=== PATIENT | female | born 1945 | race Caucasian/White ===

== ENCOUNTER → 2020-10-04 | Outpatient (CLI) | payer MEDICARE, BC | END | disposition home or self-care (01) | LOC: LAB SHORT 14:36 → LAB 14:36 | DX: D22.5 Melanocytic nevi of trunk (principal) | CPT/HCPCS: 88305 ==

== ENCOUNTER 2023-09-08 12:07 | Day surgery (SDC) | payer MEDICARE, BC ==
[~2023-09-08] VITALS: Ht 157.5 cm; Wt 61.5 kg
[~2023-09-08 12:07] MED LIST: Lactated Ringer's 1,000 ML IV ONE; propofoL 50 ML IV ONE
[2023-09-08] MEDS ORDERED: Lactated Ringer's 1,000 ML IV ONE (13:32)
[2023-09-08 14:37] VITALS: BP 122/68
== END 2023-09-08 14:49 | disposition home or self-care (01) ==
LOC: ORSCSDS 12:07
PROVIDERS: Internal Medicine Gastroenterology
PROC: 0DBK8ZX Excision of Ascending Colon, Via Natural or Artificial Opening Endoscopic, Diagnostic (ICD-10-PCS; principal; 2023-09-08 14:15)
PROC: 0DBM8ZX Excision of Descending Colon, Via Natural or Artificial Opening Endoscopic, Diagnostic (ICD-10-PCS; principal; 2023-09-08 14:15)
DX: R19.4 Change in bowel habit (principal); D12.2 Benign neoplasm of ascending colon; D12.4 Benign neoplasm of descending colon
CPT/HCPCS: 88305; J2704; J7120

== ENCOUNTER → 2024-05-28 | Outpatient (CLI) | payer MEDICARE, BC | LOC: LAB 18:19 → LAB SHORT 18:19 | DX: R32 Unspecified urinary incontinence (principal) | CPT/HCPCS: 87086 ==

== ENCOUNTER → 2024-08-26 | Outpatient (CLI) | payer MEDICARE, BC | LOC: LAB 18:45 → LAB SHORT 18:45 | DX: R39.9 Unspecified symptoms and signs involving the genitourinary system (principal) | CPT/HCPCS: 87086 ==

== ENCOUNTER → 2024-11-22 | Outpatient (CLI) | payer MEDICARE, BC ==
[2024-11-22 19:10] LABS: Calcium, Urine 12.3 mg/dL (< 17.5); Calcium, Urine Calculation 184.5 mg/24hrs (42.0-353.0)
== END ==
LOC: LAB SHORT 06:45 → LAB 06:45
PROVIDERS: Internal Medicine Endocrinology, Diabetes & Metabolism
DX: E21.3 Hyperparathyroidism, unspecified (principal)
CPT/HCPCS: 81050; 82340; 82570